=== PATIENT | male | born 2000 | race African-American/Black ===

== ENCOUNTER 2018-06-20 13:45 | Emergency (ER) | payer MEDICAID, OTHER ==
[~2018-06-20] VITALS: Ht 190.5 cm; Wt 108.0 kg
[2018-06-20] MEDS ORDERED: IBUPROFEN 800MG TABLET PO ONE (16:45)
[2018-06-20] MEDS ORDERED: ACETAMINOPHEN 500MG TABLET PO ONE (17:00)
[2018-06-20 17:20] VITALS: BP 128/77
== END 2018-06-20 17:24 | disposition home or self-care (01) ==
LOC: ER 16:32
DX: B34.9 Viral infection, unspecified (principal); R42 Dizziness and giddiness; R11.0 Nausea; R51 Headache; R09.81 Nasal congestion
CPT/HCPCS: 99283